=== PATIENT | female | born 1990 | race African-American/Black ===

== ENCOUNTER 2018-11-11 22:46 | Emergency (ER) | payer BC, OTHER ==
[~2018-11-11] VITALS: Ht 157.5 cm; Wt 117.9 kg
[2018-11-12 00:45] LABS: HEMATOCRIT 35.5 % (37.0-47.0); HEMOGLOBIN 11.8 gm/dL (12.0-15.0); MCH 28.4 pg (26.0-34.0); MCHC 33.1 g/dL (28.0-37.0); MCV 85.8 fL (80.0-100.0); PLATELET COUNT 257 thou/uL (150-400); RBC 4.14 mil/uL (4.20-5.00); RDW 17.7 % (10.5-14.5); WBC 4.6 thou/uL (4.0-11.0)
[2018-11-12 00:48] LABS: URINE BILIRUBIN NEGATIVE (Negative); URINE BLOOD NEGATIVE (Negative); URINE CLARITY CLEAR; URINE COLOR YELLOW; URINE GLUCOSE-RANDOM* NEGATIVE (Negative); URINE KETONES 1+ (Negative); URINE PROTEIN (DIPSTICK) TRACE (Negative); URINE SPECIFIC GRAVITY >= 1.030 (1.005-1.035); URINE UROBILINOGEN 0.2 E.U./dl (0.2-1.0)
[2018-11-12 00:57] LABS: CALCIUM 8.8 mg/dL (8.5-10.1); CREATININE 0.6 mg/dL (0.6-1.0); POTASSIUM 3.4 mmol/L (3.5-5.1)
[2018-11-12 01:03] LABS: ALBUMIN 3.6 g/dL (3.4-5.0); TOTAL BILIRUBIN 0.2 mg/dL (<0.1-1.0); TOTAL PROTEIN 8.5 g/dL (6.4-8.2)
[2018-11-12 01:07] LABS: URINE LEUKOCYTES-REFLEX 1+ (Negative); URINE NITRITE-REFLEX POSITIVE (Negative)
[2018-11-12 01:11] LABS: SQUAMOUS 4-10 Moderate /LPF (0-3)
[2018-11-12 01:12] LABS: BACTERIA-REFLEX >30 Many /HPF (None Seen); CASTS None Seen /LPF (None Seen); CRYSTALS None Seen /LPF (None Seen); MUCUS 0-3 Light strn/LPF (None Seen); URINE RBC 3-10 Few /HPF (0-2)
[2018-11-12 01:43] LABS: ABSOLUTE NEUTROPHILS 3.5 thou/uL (1.4-8.2)
[2018-11-12 01:45] LABS: ANISOCYTOSIS 1+; LARGE PLATELETS FEW; PLATELET ESTIMATE NORMAL; POLYCHROMASIA 1+
[2018-11-12] MEDS ORDERED: OSELB75 PO (01:57)
[2018-11-12] MEDS ORDERED: PHENERGAN 25 MG25 M1 PO (01:57)
[2018-11-12] MEDS ORDERED: KEFLEX500 M1 PO (01:57)
[2018-11-12 02:30] VITALS: BP 122/59
== END 2018-11-12 02:30 | disposition home or self-care (01) ==
LOC: ER 22:46
PROVIDERS: Physician Assistant
DX: O23.41 Unspecified infection of urinary tract in pregnancy, first trimester (principal); O99.511 Diseases of the respiratory system complicating pregnancy, first trimester; O21.8 Other vomiting complicating pregnancy; O26.891 Other specified pregnancy related conditions, first trimester; E87.1 Hypo-osmolality and hyponatremia; Z3A.00 Weeks of gestation of pregnancy not specified; Z98.890 Other specified postprocedural states